=== PATIENT | female | born 1995 | race Caucasian/White ===

== ENCOUNTER 2023-10-16 17:52 | Emergency (ER) | payer OTHER, SELFPAY ==
[2023-10-16 18:00] VITALS: BP 132/67; PULSE 98; RESP 20; TEMP 37; O2SAT 100
[2023-10-16 18:06] VITALS: BP 132/67; PULSE 98; RESP 20; TEMP 37; O2SAT 100
--- NOTE | 2023-10-16 18:16 | ED.URI ---
HPI - URI/Sore Throat General Chief Complaint: Upper Respiratory Infection Stated Complaint: Right Ear Pain Source: patient, family and RN notes reviewed History of Present Illness HPI Narrative: 28 yo F, , presents to urgent care with visitor at side. Pt states she has been having right ear pain, decreased hearing, sore throat, and dry cough x 2 days. Pt reports some diarrhea and congestion. Denies any SOB, abdominal pain, vomiting, or abnormal chest pain. Related Data Home Medications Medication Instructions Recorded Confirmed ferrous sulfate 325 mg (65 mg mg 10/16/23 iron) tablet (FeroSul) Allergies Allergy/AdvReac Type Severity Reaction Status Date / Time No Known Allergies Allergy Verified 10/16/23 18:05 Review of Systems Review of Systems: Pertinent positives and pertinent negatives per HPI. PMFSH Comments At the time of my signature, I reviewed and agree with the nursing past medical, surgical, social, and family history. There is no relevant family history pertinent to the patient complaint. Exam Narrative: GENERAL: This is a well-nourished, well-developed patient, in no apparent distress. HEAD: normocephalic, atraumatic. EYES: Sclera clear/white. Vision is grossly intact. EARS: External ears normal, auditory canals clear and without drainage, Left TM normal without perforation. Hearing grossly intact. Right TM is partially occluded by cerumen; what is visualized is erythremic and bulging. NOSE: External nose normal with no obvious nasal discharge, nares without redness, no rhinorrhea. + congestion. THROAT: Mucous membranes moist, posterior pharynx clear. NECK: Neck supple, non-tender without lymphadenopathy, masses or thyromegaly. CARDIOVASCULAR: Regular rate and rhythm without murmurs, gallops, or rubs. RESPIRATORY: Clear to auscultation. Breath sounds equal bilaterally. No wheezes, rales, or rhonchi. SKIN: warm, intact with no suspicious lesions or rash, good texture and turgor. NEURO: awake, alert, and oriented to person, place and time. There were no obvious focal neurologic abnormalities. EXTREMITIES: No clubbing, cyanosis, or edema. No joint tenderness, effusion, or edema noted. BACK: Nontender without deformity or crepitus. No flank tenderness. Course Course Level of Care: Express Care Visit Vital Signs Vital signs: Vital Signs Temperature 98.6 F 10/16/23 18:00 Pulse Rate 98 10/16/23 18:00 Respiratory Rate 20 10/16/23 18:00 Blood Pressure 132/67 10/16/23 18:00 Pulse Oximetry 100 10/16/23 18:00 Oxygen Delivery Room Air 10/16/23 18:00 Temperature 98.6 F 10/16/23 18:06 Pulse Rate 98 10/16/23 18:06 Respiratory Rate 20 10/16/23 18:06 Blood Pressure 132/67 10/16/23 18:06 Pulse Oximetry 100 10/16/23 18:06 Oxygen Delivery Room Air 10/16/23 18:06 Reviewed MDM - URI/Sore Throat MDM Narrative Medical decision making narrative: Take antibiotics as directed. May given ibuprofen and/or Tylenol as needed for pain and/or fever. Follow up with primary care provider in 7-10 days to have ear rechecked. Differential Diagnosis Differential diagnosis: Likely upper respiratory infection, otitis media, sinusitis, viral infection, bronchitis and pharyngitis Lab Data Attestation: I reviewed the patient's lab results. Labs: Strep Screen Presumptive Negative *(Reference Range: Negative)* Critical Care Time Critical Care Time Critical Care Time: No Discharge Plan Discharge Clinical Impression: Viral infection Otitis media Qualifiers: Otitis media type: unspecified Chronicity: acute Qualified Code(s): H66.90 - Otitis media, unspecified, unspecified ear Patient Disposition: Home, Self-Care Condition: Stable Instructions: Antibiotic Form, Ear Infection (AC), Viral Syndrome (ED) Additional Instructions: Take antibiotics as directed. May given ibuprofen and/or Tylenol
== END 2023-10-16 18:29 | disposition home or self-care (01) ==
PROVIDERS: Emergency Provider Nurse Practitioner Family
DX: B34.9 Viral infection, unspecified (principal); H66.91 Otitis media, unspecified, right ear
CPT/HCPCS: 87081; 87880; 99213; G0463

== ENCOUNTER 2024-08-18 09:48 | Emergency (ER) | payer OTHER, SELFPAY ==
[2024-08-18 09:54] VITALS: BP 140/80; PULSE 94; RESP 20; TEMP 36.8; O2SAT 100
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
== END 2024-08-18 10:52 | disposition home or self-care (01) ==
PROVIDERS: Emergency Provider Nurse Practitioner
DX: M94.0 Chondrocostal junction syndrome [Tietze] (principal); M62.838 Other muscle spasm; F17.290 Nicotine dependence, other tobacco product, uncomplicated
CPT/HCPCS: 99213; G0463

== ENCOUNTER 2024-08-25 08:27 | Emergency (ER) | payer OTHER, SELFPAY ==
[2024-08-25 08:39] VITALS: BP 119/67; PULSE 90; RESP 16; TEMP 36.6
--- NOTE | 2024-08-25 08:40 | ED.URI ---
HPI - URI/Sore Throat General Chief Complaint: Upper Respiratory Infection Stated Complaint: Fever/Headahce/Body Aches Time Seen by Provider: 08/25/24 08:40 History of Present Illness HPI Narrative: 29-year-old female presented for complaint of fever this morning up to 101.5. Also reports persistent cough for 1 week,body aches, headache and throat feels swollen. Denies shortness of breath, wheezing, nausea, vomiting, or lethargy. She took Tylenol this morning for the fever. Pt treated with prednisone 08/15 for cough/costochondritis. Related Data Allergies Allergy/AdvReac Type Severity Reaction Status Date / Time No Known Allergies Allergy Verified 08/18/24 10:13 Review of Systems Review of Systems: CONSTITUTIONAL: Reports body aches, fever, chills, sweats. EYES: Denies visual changes, redness, or discharge. ENT: Denies rhinorrhea, congestion, or otalgia. CARDIOVASCULAR: Denies chest pain, palpitations, or edema. RESPIRATORY: reports cough Denies dyspnea. GASTROINTESTINAL: Denies abdominal pain, nausea, vomiting, or diarrhea. SKIN: Denies rash, itching, or wounds. MUSCULOSKELETAL: Denies back pain, joint pain. NEUROLOGIC: reports headache PMFSH Social History Social History Smoking status: Current every day smoker Tobacco type: e-cigarettes/vaping Exam Narrative: GENERAL: well-appearing, no acute distress. EYES: conjunctivae clear ENT: Mucous membranes moist. TMs pearly haro with normal light reflex bilaterally; no tragal tenderness. Oropharynx not erythematous without lesions. Tonsils not enlarged and without exudate. No drooling, no hoarseness, no trismus, uvula midline. No tripod positioning, hot potato voice, or soft palate swelling. NECK: Supple. No lymphadenopathy CHEST: Clear to auscultation, breath sounds equal. No respiratory distress, speaks in full sentences. HEART: Regular rate and rhythm. No murmur heard. SKIN: Warm, dry, no rash. NEURO: Alert and oriented x3. Course Course Emergency Course: Patient is aware of diagnosis, understands and agrees to treatment plan. Anticipatory guidance given. Patient agrees to follow-up as directed and is aware of reasons to seek care at the emergency department. Portions of this record may have been created with voice recognition software Level of Care: Express Care Visit Vital Signs Vital signs: Vital Signs Temperature 98 F 08/25/24 08:39 Pulse Rate 90 08/25/24 08:39 Respiratory Rate 16 08/25/24 08:39 Blood Pressure 119/67 08/25/24 08:39 Oxygen Delivery Room Air 08/25/24 08:39 Temperature 98 F 08/25/24 08:39 Pulse Rate 90 08/25/24 08:39 Respiratory Rate 16 08/25/24 08:39 Blood Pressure 119/67 08/25/24 08:39 Pulse Oximetry 100 08/25/24 08:42 Oxygen Delivery Room Air 08/25/24 08:42 MDM - URI/Sore Throat MDM Narrative Medical decision making narrative: negative flu, COVID, and strep result reviewed with pt. Advise supportive treatments. Patient is appropriate for outpatient treatment and follow-up. Differential Diagnosis Differential diagnosis: Likely upper respiratory infection, viral infection and pharyngitis Discharge Plan Discharge Clinical Impression: Upper respiratory infection Patient Disposition: Home, Self-Care Condition: Stable Instructions: Antibiotic Form, Costochondritis (ED) Additional Instructions: Rapid strep swab was negative today You will be notified in a few days if the culture comes back positive for strep, and appropriate antibiotics will be called in at that time. if symptoms are due to a viral illness, it is not treated with antibiotics. Viral symptoms can be present for up to 10-14 days. Recommend Flonase spray and Zyrtec for sinus congestion Cough syrup may cause drowsiness; avoid driving or take it at night time. Tylenol every 8 hours as needed for pain/fever Soft foods, cool liq
[2024-08-25 08:42] VITALS: O2SAT 100
[2024-08-25 09:18] LABS: EDCOVIDSCREEN Negative (Negative); EDINFLUASCREEN Negative (Negative); EDINFLUBSCREEN Negative (Negative); EDSTREPNEGPOS1 Negative (Negative)
== END 2024-08-25 09:22 | disposition home or self-care (01) ==
PROVIDERS: Emergency Provider Nurse Practitioner Family
DX: J06.9 Acute upper respiratory infection, unspecified (principal); Z20.822 Contact with and (suspected) exposure to COVID-19; F17.290 Nicotine dependence, other tobacco product, uncomplicated
CPT/HCPCS: 87081; 87426; 87804; 87880; 99213; G0463